=== PATIENT | female | born 1980 | race Caucasian/White ===

== ENCOUNTER → 2017-02-26 | Outpatient (CLI) | payer BC, MEDICAID ==
[~2017-02-26] MED LIST: AZIT250T PO; METH4TAB PO; METO25TA PO; NAPR-243 PO; TRM50T PO
--- NOTE | 2017-02-26 12:05 | Diagnostic Imaging Report ---
PROCEDURE: CT head without contrast. TECHNIQUE: Multiple contiguous axial images were obtained through the brain without the use of intravenous contrast. INDICATION: Injury. Headaches. Blurred vision. . FINDINGS: There is no intracranial hemorrhage, edema or mass effect. The brain parenchyma appears unremarkable. No hydrocephalus. The visualized portions of the orbits and paranasal sinuses appear unremarkable. IMPRESSION: Unremarkable study. Dictated by: Dictated on workstation # [id number]
== END ==
LOC: RAD 11:39
PROVIDERS: ATTEND Nurse Practitioner Family
DX: S09.90XA Unspecified injury of head, initial encounter (principal); X58.XXXA Exposure to other specified factors, initial encounter
CPT/HCPCS: 70450